=== PATIENT | male | born 2000 | race Two or more races ===

== ENCOUNTER → 2022-01-21 | Outpatient (REF) | payer OTHER | LOC: M LAB REF 12:15 | PROVIDERS: ATTEND Physician Assistant | DX: R11.2 Nausea with vomiting, unspecified (principal); R50.9 Fever, unspecified; J02.9 Acute pharyngitis, unspecified ==

== ENCOUNTER 2022-05-10 23:10 | Emergency (ER) | payer OTHER ==
[~2022-05-10] VITALS: Ht 172.7 cm; Wt 117.2 kg
[2022-05-11 01:34] LABS: AMORPHOUS SEDIMENT, URINE LARGE AMOUNT (NEGATIVE); BACTERIA, URINE NONE SEEN; HYALINE CAST, URINE NONE SEEN /lpf (0-1); SQUAMOUS EPITHELIAL CELL URINE SMALL AMOUNT /hpf (SMALL AMT)
[2022-05-11 03:47] VITALS: BP 118/54
[2022-05-11 04:39] LABS: GC DNA AMPLIFICATION NEGATIVE (NEGATIVE)
== END 2022-05-11 04:35 | disposition left against medical advice (07) ==
LOC: M ED 23:10
DX: Z53.21 Procedure and treatment not carried out due to patient leaving prior to being seen by health care provider (principal)

== ENCOUNTER 2022-09-04 05:50 | Emergency (ER) | payer OTHER ==
[~2022-09-04] VITALS: Ht 172.7 cm; Wt 122.7 kg
[2022-09-04] MEDS ORDERED: ACETAMINOPHEN 500 MG TAB PO ONE (07:30)
[2022-09-04 08:44] LABS: MONO SCRN NEGATIVE (NEGATIVE)
[2022-09-04] MEDS ORDERED: BENZ1LOZ9 PO (08:58)
[2022-09-04 09:00] VITALS: BP 126/65
== END 2022-09-04 10:20 | disposition home or self-care (01) ==
LOC: M ED 05:50
DX: J06.9 Acute upper respiratory infection, unspecified (principal); H92.03 Otalgia, bilateral; F12.10 Cannabis abuse, uncomplicated; Z87.891 Personal history of nicotine dependence; Z79.899 Other long term (current) drug therapy

== ENCOUNTER 2022-12-11 21:19 | Emergency (ER) | payer OTHER ==
[~2022-12-11] VITALS: Ht 172.7 cm; Wt 115.2 kg
[~2022-12-11 21:19] MED LIST: BENZ1LOZ9 PO
[2022-12-11 23:09] VITALS: BP 130/80
== END 2022-12-11 23:10 | disposition home or self-care (01) ==
LOC: M ED 21:19
DX: S39.011A Strain of muscle, fascia and tendon of abdomen, initial encounter (principal); X50.0XXA Overexertion from strenuous movement or load, initial encounter; F17.200 Nicotine dependence, unspecified, uncomplicated; Z79.899 Other long term (current) drug therapy

== ENCOUNTER → 2023-02-07 | Outpatient (CLI) | payer OTHER | LOC: M RAD 13:55 | PROVIDERS: ATTEND Physician Assistant Medical | DX: M25.571 Pain in right ankle and joints of right foot (principal); M79.671 Pain in right foot ==

== ENCOUNTER → 2023-02-22 | Outpatient (CLI) | payer OTHER | LOC: M SOG 15:48 | PROVIDERS: ATTEND Physician Assistant | DX: M79.671 Pain in right foot (principal) ==

== ENCOUNTER → 2023-03-26 | Outpatient (REF) | payer OTHER | LOC: M LAB REF 11:56 | PROVIDERS: ATTEND Physician Assistant | DX: B34.9 Viral infection, unspecified (principal) ==

== ENCOUNTER 2023-05-19 18:54 | Emergency (ER) | payer OTHER ==
[~2023-05-19] VITALS: Ht 175.3 cm; Wt 111.6 kg
[2023-05-19 18:55] VITALS: BP 140/69; TEMP 98.6; O2SAT 97
[2023-05-19 20:43] LABS: BASO # 0.1 10^3/uL (0.0-0.2); BASO % 0.8 % (0.0-1.0); EOS # 0.4 10^3/uL (0.0-0.5); EOS % 4.8 % (0.0-3.0); HEMATOCRIT 45.9 % (42.0-52.0); HEMOGLOBIN 15.8 g/dl (13.5-17.5); LYMPH # 2.7 10^3/uL (1.5-5.0); LYMPH % 29.8 % (24.0-44.0); MEAN CORPUSCULAR HEMOGLOBIN 28.5 pg (27.0-33.0); MEAN CORPUSCULAR HGB CONC 34.4 g/dl (32.0-36.5); MEAN CORPUSCULAR VOLUME 82.9 fl (80.0-96.0); MONO # 1.3 10^3/uL (0.0-0.8); MONO % 14.6 % (2.0-8.0); NEUTROPHILS # 4.6 10^3/uL (1.5-8.5); NEUTROPHILS % 49.8 % (36.0-66.0); PLATELET COUNT, AUTOMATED 272 10^3/uL (150-450); RED BLOOD COUNT 5.54 10^6/uL (4.30-6.10); WHITE BLOOD COUNT 9.2 10^3/uL (4.0-10.0)
[2023-05-19 21:04] LABS: LIPASE 34 U/L (12-53)
[2023-05-19 21:07] LABS: ALBUMIN 3.5 G/DL (3.2-5.2); ALKALINE PHOSPHATASE 64 U/L (46-116); ALT/SGPT 49 U/L (7.0-40); AST/SGOT 35 U/L (<34); BILIRUBIN,DIRECT 0.3 MG/DL (<0.4); BILIRUBIN,TOTAL 0.7 MG/DL (0.3-1.2); BLOOD UREA NITROGEN 11 MG/DL (9-23); CALCIUM LEVEL 8.7 MG/DL (8.5-10.1); CARBON DIOXIDE LEVEL 29 MMOL/L (20-31); CHLORIDE LEVEL 104 MMOL/L (98-107); CREATININE FOR GFR 0.99 MG/DL (0.70-1.30); GLOMERULAR FILTRATION RATE > 60.0 (>60); GLUCOSE, FASTING 76 MG/DL (60-100); POTASSIUM SERUM 3.9 MMOL/L (3.5-5.1); SODIUM LEVEL 139 MMOL/L (136-145); TOTAL PROTEIN 6.6 G/DL (5.7-8.2)
[2023-05-19] MEDS ORDERED: KETOROLAC 30 MG/ML 1ML VIAL IV ONE (22:10)
[2023-05-19] MEDS ORDERED: ONDANSETRON 4MG 2ML VIAL IV ONE (22:10)
[2023-05-19] MEDS ORDERED: ONDA4TAB6 PO (22:24)
[2023-05-19] MEDS ORDERED: DICY20TA3 PO (22:24)
== END 2023-05-19 22:41 | disposition home or self-care (01) ==
LOC: M ED 18:54
DX: A07.2 Cryptosporidiosis (principal)
CPT/HCPCS: 80048; 80076; 83690; 85025; 87507; 93041; 96374; 96375; 99284; J1885; J2405

== ENCOUNTER 2023-07-22 23:01 | Emergency (ER) | payer OTHER ==
[~2023-07-22] VITALS: Ht 175.3 cm; Wt 112.1 kg
[~2023-07-22 23:01] MED LIST changes: +DICY20TA3 PO; +ONDA4TAB6 PO
[2023-07-22 23:02] VITALS: BP 137/64; TEMP 97; O2SAT 97
[2023-07-23] MEDS ORDERED: DERMABOND TOPICAL SKIN ADHESIVE TOP ONE (01:05)
== END 2023-07-23 01:39 | disposition home or self-care (01) ==
LOC: M ED 23:01
DX: S61.214A Laceration without foreign body of right ring finger without damage to nail, initial encounter (principal); W26.0XXA Contact with knife, initial encounter; Y92.009 Unspecified place in unspecified non-institutional (private) residence as the place of occurrence of the external cause; Y93.G3 Activity, cooking and baking; Y99.9 Unspecified external cause status

== ENCOUNTER → 2024-02-05 | Outpatient (REF) | payer OTHER | LOC: M LAB REF 10:59 | PROVIDERS: ATTEND Physician Assistant | DX: B34.9 Viral infection, unspecified (principal) ==

== ENCOUNTER 2024-04-19 22:09 | Emergency (ER) | payer OTHER ==
[~2024-04-19 22:09] MED LIST changes: +ONDA-282 PO; -ONDA4TAB6 PO
[2024-04-19] MEDS: ONDANSETRON 4MG 2ML VIAL IV ONE (23:14)
[2024-04-19] MEDS: KETOROLAC 30 MG/ML 1ML VIAL IV ONE (23:18)
[2024-04-19] MEDS: NS 1,000 ML IV ONE (23:18)
[2024-04-20 01:25] VITALS: BP 135/67; TEMP 96.9; O2SAT 97
== END 2024-04-20 01:27 | disposition home or self-care (01) ==
LOC: M ED 22:09 → EDBD 22:09 → M ED 04-20 01:27
DX: G43.909 Migraine, unspecified, not intractable, without status migrainosus (principal); F41.1 Generalized anxiety disorder; F31.9 Bipolar disorder, unspecified; F90.9 Attention-deficit hyperactivity disorder, unspecified type; F17.200 Nicotine dependence, unspecified, uncomplicated; Z88.8 Allergy status to other drugs, medicaments and biological substances
CPT/HCPCS: 96361; 96374; 96375; 99284; J1885; J2405

== ENCOUNTER 2024-07-14 00:59 | Emergency (ER) | payer OTHER ==
[~2024-07-14] VITALS: Ht 175.3 cm; Wt 121.3 kg
[2024-07-14 01:02] VITALS: TEMP 97.2
[2024-07-14] MEDS: KETOROLAC 30 MG/ML 1ML VIAL IV ONE (03:46)
[2024-07-14 04:59] VITALS: O2SAT 98
[2024-07-14 05:01] VITALS: BP 116/55
[2024-07-14] MEDS ORDERED: KETO10TAB PO (05:02)
== END 2024-07-14 05:16 | disposition home or self-care (01) ==
LOC: M ED 00:59
DX: G43.909 Migraine, unspecified, not intractable, without status migrainosus (principal); F17.200 Nicotine dependence, unspecified, uncomplicated; Z79.899 Other long term (current) drug therapy
CPT/HCPCS: 96374; 99284; J1885

== ENCOUNTER 2024-07-15 22:00 | Emergency (ER) | payer OTHER ==
[~2024-07-15] VITALS: Ht 175.3 cm; Wt 123.2 kg
[~2024-07-15 22:00] MED LIST changes: +KETO10TAB PO
[2024-07-16 00:57] VITALS: BP 133/64; TEMP 98; O2SAT 97
== END 2024-07-16 00:58 | disposition home or self-care (01) ==
LOC: M ED 22:00
DX: G43.909 Migraine, unspecified, not intractable, without status migrainosus (principal); F17.200 Nicotine dependence, unspecified, uncomplicated; Z88.8 Allergy status to other drugs, medicaments and biological substances; Z79.899 Other long term (current) drug therapy

== ENCOUNTER → 2024-09-06 | Outpatient (REF) | payer OTHER | LOC: M LAB REF 12:13 | PROVIDERS: ATTEND Physician Assistant | DX: B34.9 Viral infection, unspecified (principal) ==

== ENCOUNTER → 2024-09-23 | Outpatient (CLI) | payer OTHER | LOC: M RAD 16:27 | PROVIDERS: ATTEND Physician Assistant Medical | DX: M79.671 Pain in right foot (principal); R60.0 Localized edema ==

== ENCOUNTER → 2024-10-17 | Outpatient (CLI) | payer OTHER | LOC: M SOG 07:52 | PROVIDERS: ATTEND Physician Assistant | DX: M79.671 Pain in right foot (principal); Z53.9 Procedure and treatment not carried out, unspecified reason ==

== ENCOUNTER 2025-05-02 18:06 | Emergency (ER) | payer OTHER ==
[~2025-05-02] VITALS: Ht 175.3 cm; Wt 118.4 kg
[2025-05-02 18:26] VITALS: BP 133/73; TEMP 99; O2SAT 99
== END 2025-05-02 19:14 | disposition left against medical advice (07) ==
LOC: M ED 18:06
DX: Z53.21 Procedure and treatment not carried out due to patient leaving prior to being seen by health care provider (principal)